=== PATIENT | female | born 1980 | race Caucasian/White ===

== ENCOUNTER 2021-08-17 04:43 | Day surgery (SDC) | payer OTHER ==
[2021-08-13 12:04] VITALS: BMI 42.7
[2021-08-17 10:36] LABS: URINE APPEARANCE CLEAR; URINE BILIRUBIN NEGATIVE (NEGATIVE); URINE COLOR YELLOW; URINE GLUCOSE (UA) NEGATIVE (NEGATIVE); URINE KETONE TRACE (NEGATIVE); URINE LEUK ESTERASE NEGATIVE (NEGATIVE); URINE NITRITE NEGATIVE (NEGATIVE); URINE PROTEIN NEGATIVE (NEGATIVE); URINE UROBILINOGEN 0.2 mg/dL (0.2-1.0)
[2021-08-17] MEDS ORDERED: PROPOFOL 20 ML ONE ×2 (11:58→12:32)
[2021-08-17] MEDS ORDERED: MIDAZOLAM HCL 2 MG/2 ML SINGLE DOSE VIAL ONE ×2 (11:58→12:32)
[2021-08-17] MEDS ORDERED: ACETAMINOPHEN 325 MG TABLET (FP) PO PRN (12:22)
[2021-08-17] MEDS ORDERED: IBUPROFEN 400 MG TABLET (FP) PO PRN (12:22)
[2021-08-17] MEDS ORDERED: LACTATED RINGERS SOLUTION 1,000 ML IV SCH ×2 (12:30→13:45)
[2021-08-17] MEDS ORDERED: DEXAMETHASONE SOD PHOSPHATE 4 MG/1 ML VIAL ONE (13:09)
[2021-08-17] MEDS ORDERED: ONDANSETRON 4 MG/2 ML VIAL IVPUSH PRN (13:42)
[2021-08-17] MEDS ORDERED: oxyCODONE HCL 5 MG TABLET PO PRN (13:42)
[2021-08-17 18:21] VITALS: BP 153/74; PULSE 78; TEMP 97.8
== END 2021-08-17 17:30 | disposition home or self-care (01) ==
LOC: JASU-SURG 04:43
PROVIDERS: ATTEND Obstetrics & Gynecology
PROC: 0UC98ZZ Extirpation of Matter from Uterus, Via Natural or Artificial Opening Endoscopic (ICD-10-PCS; principal; 2021-08-17 11:00)
PROC: 0UDB8ZZ Extraction of Endometrium, Via Natural or Artificial Opening Endoscopic (ICD-10-PCS; 2021-08-17 11:00)
PROC: 0UN98ZZ Release Uterus, Via Natural or Artificial Opening Endoscopic (ICD-10-PCS; 2021-08-17 11:00)
DX: T83.89XA Other specified complication of genitourinary prosthetic devices, implants and grafts, initial encounter (principal); N85.6 Intrauterine synechiae; Y76.8 Miscellaneous obstetric and gynecological devices associated with adverse incidents, not elsewhere classified; Y92.9 Unspecified place or not applicable
CPT/HCPCS: 81003; 81025; 86850; 86870; 86900; 86901; 86902; 88300-TC; 88305-TC; 94760